=== PATIENT | female | born 1995 | race American Indian/Alaskan Native ===

== ENCOUNTER 2019-09-12 16:14 | Outpatient (CLI) | payer MEDICAID, OTHER ==
[2019-09-12 16:39] VITALS: BP 108/61
[2019-09-12] MEDS ORDERED: LACTATED RINGERS 500 ML IV ONE (17:12)
[2019-09-12 17:31] LABS: Bilirubin,Urine NEG (Negative); Blood,Urine NEG (Negative); Color,Urine Yellow (Yellow); Mucus,Urine FEW /HPF; Protein,Urine <15 mg/dL mg/dL (Negative); Urobilinogen,Urine < 2.0 mg/dL (<2.0)
[2019-09-12] MEDS ORDERED: FLUCONAZOLE 200 MG TAB PO SCH (18:00)
[2019-09-12] MEDS ORDERED: FLUCONAZOLE 200 MG TAB ONE (18:33)
== END 2019-09-12 18:45 | disposition home or self-care (01) ==
LOC: TRG 16:14
PROVIDERS: ATTEND Obstetrics & Gynecology
DX: O36.8130 Decreased fetal movements, third trimester, not applicable or unspecified (principal); O47.03 False labor before 37 completed weeks of gestation, third trimester; O99.323 Drug use complicating pregnancy, third trimester; F12.90 Cannabis use, unspecified, uncomplicated; Z3A.30 30 weeks gestation of pregnancy
CPT/HCPCS: 59025; 81001; 96365; J0690; J7120; 96360

== ENCOUNTER 2019-10-21 20:42 | Outpatient (CLI) | payer OTHER ==
[2019-10-21 22:20] VITALS: BP 110/62
== END 2019-10-21 22:26 | disposition home or self-care (01) ==
LOC: TRG 20:42 → APU 20:54 → TRG 22:26
PROVIDERS: ATTEND Obstetrics & Gynecology
DX: O26.893 Other specified pregnancy related conditions, third trimester (principal); R10.2 Pelvic and perineal pain; M54.5 Low back pain; Z3A.36 36 weeks gestation of pregnancy
CPT/HCPCS: 59025